=== PATIENT | male | born 2000 | race Two or more races ===

== ENCOUNTER 2020-07-28 21:20 | Emergency (ER) | payer BC, OTHER ==
[~2020-07-28] VITALS: Ht 185.4 cm; Wt 104.3 kg
[2020-07-28 21:20] VITALS: BP 137/84
== END 2020-07-29 00:09 | disposition left against medical advice (07) ==
LOC: ER 21:23
DX: M54.5 Low back pain (principal); Z53.21 Procedure and treatment not carried out due to patient leaving prior to being seen by health care provider
CPT/HCPCS: 72100